=== PATIENT | female | born 1985 | race Two or more races ===

== ENCOUNTER 2021-10-09 11:00 | Outpatient (CLI) | payer OTHER | END 2021-10-09 11:27 | disposition home or self-care (01) | LOC: PRENATAL 11:00 | PROVIDERS: ATTEND Obstetrics & Gynecology Maternal & Fetal Medicine | DX: O09.92 Supervision of high risk pregnancy, unspecified, second trimester (principal); Z36.0 Encounter for antenatal screening for chromosomal anomalies; Z3A.11 11 weeks gestation of pregnancy ==

== ENCOUNTER 2021-11-07 07:59 | Outpatient (CLI) | payer OTHER | END 2021-11-07 09:15 | disposition home or self-care (01) | LOC: PRENATAL 07:59 | PROVIDERS: ATTEND Obstetrics & Gynecology Maternal & Fetal Medicine | DX: O35.0XX0 Maternal care for (suspected) central nervous system malformation in fetus, not applicable or unspecified (principal); O09.529 Supervision of elderly multigravida, unspecified trimester; Z3A.21 21 weeks gestation of pregnancy; O44.00 Complete placenta previa NOS or without hemorrhage, unspecified trimester ==

== ENCOUNTER 2021-12-26 15:39 | Outpatient (CLI) | payer OTHER | END 2021-12-26 16:55 | disposition home or self-care (01) | LOC: PRENATAL 15:39 | PROVIDERS: ATTEND Obstetrics & Gynecology Maternal & Fetal Medicine | DX: O26.849 Uterine size-date discrepancy, unspecified trimester (principal); O09.529 Supervision of elderly multigravida, unspecified trimester; O44.00 Complete placenta previa NOS or without hemorrhage, unspecified trimester; Z3A.28 28 weeks gestation of pregnancy; O26.893 Other specified pregnancy related conditions, third trimester; Z88.8 Allergy status to other drugs, medicaments and biological substances ==

== ENCOUNTER 2022-02-06 15:25 | Outpatient (CLI) | payer OTHER | END 2022-02-06 16:25 | disposition home or self-care (01) | LOC: PRENATAL 15:25 | PROVIDERS: ATTEND Obstetrics & Gynecology Maternal & Fetal Medicine | DX: O26.849 Uterine size-date discrepancy, unspecified trimester (principal); O09.529 Supervision of elderly multigravida, unspecified trimester; O44.00 Complete placenta previa NOS or without hemorrhage, unspecified trimester; Z3A.34 34 weeks gestation of pregnancy ==

== ENCOUNTER 2022-03-12 08:10 | Inpatient (IN) | payer OTHER ==
[~2022-03-12] VITALS: Ht 157.5 cm; Wt 77.1 kg
[2022-03-12] MEDS ORDERED: PRENATAL CAPLE1 EAC1 (11:21)
== END 2022-03-14 14:55 | disposition home or self-care (01) | DRG 807 ==
LOC: LDR 08:10 → OB/GYN 03-13 14:00
PROVIDERS: ADMIT Obstetrics & Gynecology; ATTEND Obstetrics & Gynecology
PROC: 10E0XZZ Delivery of Products of Conception, External Approach (ICD-10-PCS; principal; 2022-03-12)
PROC: 4A1HXCZ Monitoring of Products of Conception, Cardiac Rate, External Approach (ICD-10-PCS; 2022-03-12)
DX: O80 Encounter for full-term uncomplicated delivery (principal); Z37.0 Single live birth; Z3A.39 39 weeks gestation of pregnancy; Z20.822 Contact with and (suspected) exposure to COVID-19